=== PATIENT | female | born 1955 | race Caucasian/White ===

== ENCOUNTER 2018-07-26 15:00 | Emergency (ER) | payer BC ==
--- NOTE | 2018-07-26 15:40 | EDPHY ---
H & P Stated Complaint: States rt hand weak grasp since yesterday am,denies other s/s' s Time Seen by Provider: 07/26/18 15:16 HPI/ROS: Yesterday at 7:00 a.m., approximately 32 hr prior to presentation patient noticed right hand weakness citing difficulties with daily activities using her dominant right hand due to this weakness including difficulty a brushing her hair or any fine motor skills with the right hand. She notes no other associated symptoms but has never had this symptom before. She drove herself here for evaluation. She took 2 adult aspirins this morning. She can't explain why she did come in sooner. She notes no exacerbating factors for symptoms and notes no other neuro symptoms or deficits. ROS: Constitutional: No fevers. No generalized weakness. HEENT: No URI symptoms or sinusitis symptoms. Neuro: No headache. She denies any numbness or tingling. No other focal weakness. No confusion. Pulmonary: No cough shortness of breath Cardiovascular: No chest pain or heart palpitations. No lower extremity swelling or calf pain. No lightheadedness. GI: No abdominal pain, nausea or vomiting. No diarrhea. Integumentary: No skin rash. Endocrine: No complaints Toxicology: No ingestions 10 point review of symptoms is performed and otherwise negative with exception of pertinent positives and negatives listed in HPI and ROS Source: Patient Exam Limitations: No limitations - Medical/Surgical History Hx Asthma: No Hx Chronic Respiratory Disease: No Hx Diabetes: No Hx Cardiac Disease: No Hx Renal Disease: No Hx Cirrhosis: No Hx Alcoholism: Yes Hx HIV/AIDS: No Hx Splenectomy or Spleen Trauma: No Other PMH: ORTHO SURGERIES; PANCREAS. 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 Gerd. Cervical fusion -Dr. Arenas - [facility] - Family History Significant Family History: No pertinent family hx - Social History Smoking Status: Heavy smoker (Smokes half pack a day on average) Alcohol Use: Rarely Drug Use: Marijuana (Most days) Additional Social History: No IV drug use - Physical Exam Exam: General Appearance: Alert, no distress. Eyes: Pupils equal and round no pallor or injection. ENT, Mouth: Mucous membranes moist. No sinus tenderness Neck is supple. No midline tenderness. She retains full range of motion without significant pain Respiratory: There are no retractions, lungs are clear to auscultation. Cardiovascular: Regular rate and rhythm. Gastrointestinal: Abdomen is soft and nontender, no masses, bowel sounds normal. Neurological: GCS 15. Cranial nerves 2-12 are grossly intact. The patient has notable weakness in right hand intrinsic muscles including finger AB duction, finger flexion more than wrist extension and flexion. She maintains good strength and arm flexion extension. DTRs remain intact-biceps, triceps brachioradialis 2+ symmetric bilaterally. She also has 2+ patellar DTRs bilaterally. Appreciate no significant pronator drift. She maintains normal light touch sensory exam in bilateral upper and lower extremities Skin: Warm and dry, no rashes. Musculoskeletal: Back is nontender. Extremities atraumatic and normal. She has no right upper extremity tenderness, erythema ecchymosis or other abnormalities Extremities are symmetrical, full range of motion with exception of right hand this described in neuro exam. Psychiatric: Mood and affect are normal DIFFERENTIAL DIAGNOSIS: After history and physical exam differential diagnosis was considered for stroke, cervical radiculopathy, tumor with nerve compression , conversion disorder, peripheral neuropathy. Constitutional: Initial Vital Signs Temperature (C) 36.7 C 07/26/18 15:12 Heart Rate 99 07/26/18 15:12 Respiratory Rate 16 07/26/18 15:12 Blood Pressure 137/107 H 07/26/18 15:12 O2 Sat (%) 93 07/26/18 15:12 O2 Delivery Mode Room Air Allergies/Adverse Reactions: Penicillins Allergy (Verified 07/26/18 15:11) Home Medications: Medication Instructions Recorded Albuterol Hfa Anes Only [Proair 2 puffs IH QID PRN #1 mdi 07/05/15 Hfa Anes Only] Methocarbamol [Robaxin 750 mg (*)] 750 - 1,500 mg PO QID PRN #30 tab 07/26/18 methylPREDNISolone [Medrol Dose 4 mg PO AD #1 ea 07/26/18 Gio] Medical Decision Making - Diagnostics Imaging Results: Imaging Impressions Head CT 07/26/18 15:26 Impression: Head CT within normal limits. Results called to Dr. Daniel Lieberman at 3:42 PM. General information for patients regarding this examination can be found at [email or web address]. If you have questions or comments about this report, please contact me at (hospital) or [phone] (cell). Cervical Spine X-Ray 07/26/18 15:45 Impression: 1. Disk replacement material with anterior obliquely angled screws at C4-C5, C5- C6, and C6-C7 with good alignment. 2. Minimal disk space narrowing with associated anterior marginal osteophyte at C3-C4 and at C7-T1. 3. Bilateral neuroforaminal stenosis at C5-C6 and at C6-C7 secondary to posterior lateral marginal osteophytes. Cervical spine x-rays: Hardware intact, mild degenerative changes. No acute abnormalities by my interpretation Imaging: Discussed imaging studies w/ manager call Radiologist (CT head-normal), I viewed and interpreted images myself (Plain cervical films) ED Course/Re-evaluation: The patient declined an IV or phlebotomy for blood work. She does except imaging workup. I discussed the patient's normal head CT with her and plan for plain films of her neck. A consult to Dr. Tylor Burgos-neurologist regarding this case. He agrees with plan for steroids and follow up as an outpatient Discussion: Patient with isolated weakness to right hand intrinsics corresponding to CA to T1 nerve distribution without any VP SCIENTIFIC symptoms, evidence of carpal tunnel rather peripheral neuropathies from constriction with history of prior cervical fusion, some degenerative changes and osteophytes on cervical spine plain films. Given this cluster findings that it is most likely the patient has a cervical radiculopathy. To bit unusual that she does not have associated cervical pain at this time. I counseled the patient regarding this clinical impression and treatment plan of Medrol Dosepak, all muscle relaxants p.r.n. And close follow-up with Dr. Worley, neurosurgeon or her resource conservation specialist for any ongoing symptoms despite treatment plan. As I detailed the need for her to proceed to the main emergency department at the hospital or Hospital for choice for any worsening of symptoms despite treatment plan. I also encouraged her to diminish her aspirin dose from current 2 325 mg tabs to 1 baby aspirin a day while she is on the steroids. Finally, I counseled her to quit smoking. Answered all the patient's questions prior to discharge home. Departure - Departure Disposition: Home, Routine, Self-Care Clinical Impression: Hand weakness Condition: Good Instructions: Methylprednisolone (By mouth), How to Stop Smoking (ED), Cervical Radiculopathy (ED) Additional Instructions: Diagnosis: Hand weakness It is likely that she have cervical radiculopathy causing hand weakness- impingement of a nerve in your neck. Plan: Medrol steroid medications as prescribed Decrease your aspirin intake to 1 baby aspirin a day while your on steroids Quit smoking. Follow up with your neck surgeon or with Dr. Hutchison-neurosurgeon listed below. Go to the main emergency department at [facility] or other hospital associated emergency department if you are having worsening symptoms or onset of additional symptoms over the next 24-48 hours despite treatment plan. Referrals: Yomi Hutchison MD [Medical Doctor] - As per Instructions NONE *PRIMARY CARE P,. [Primary Care Provider] - As per Instructions José Miguel Khalil MD [[facility] Primary Care Provider] - As per Instructions Prescriptions: Methocarbamol [Robaxin 750 mg (*)] 750 - 1,500 mg PO QID PRN #30 tab PRN Reason: Muscle Spasms methylPREDNISolone [Medrol Dose Gio] 4 mg PO AD #1 ea
[2018-07-26 16:44] VITALS: BP 139/91
== END 2018-07-26 16:43 | disposition home or self-care (01) ==
LOC: CED 15:00
DX: M62.81 Muscle weakness (generalized) (principal); Z79.82 Long term (current) use of aspirin; F17.200 Nicotine dependence, unspecified, uncomplicated
CPT/HCPCS: 70450-PO; 72050-PO

== ENCOUNTER 2018-10-01 11:57 | Emergency (ER) | payer BC ==
[2018-10-01 12:31] VITALS: BP 127/91
[2018-10-01] MEDS ORDERED: NS 1,000 ML IV ONE (12:55)
--- NOTE | 2018-10-01 12:58 | EDPHY ---
H & P Stated Complaint: Pt. with rt flank pain x3-4 days,denies injury as well as urinary s/s's Time Seen by Provider: 10/01/18 12:39 HPI/ROS: CHIEF COMPLAINT: Right mid back pain HISTORY OF PRESENT ILLNESS: The patient is a 63-year-old female who comes to the emergency department complaining of 3 days right posterior ribcage area pain. She denies lower or CVA pain. No dysuria or frequency. No fevers. No worsening with deep inspiration. No shortness of breath. No chest pain. She has not felt nauseous. She has not vomited. No diarrhea. No thoracic surgeries. No radiation to shoulder. Severity: Moderate Modifying factors: Constant and unrelenting REVIEW OF SYSTEMS: Constitutional: denies: chills, fever, recent illness, recent injury EENTM: denies: blurred vision, double vision, nose congestion Respiratory: denies: cough, shortness of breath Cardiac: See HPI denies: chest pain, irregular heart rate, lightheadedness, palpitations Gastrointestinal/Abdominal: denies: abdominal pain, diarrhea, nausea, vomiting, blood streaked stools Genitourinary: denies: dysuria, frequency, hematuria, pain Musculoskeletal: See HPI denies: joint pain, muscle pain Skin: denies: lesions, rash, jaundice, bruising Neurological: denies: headache, numbness, paresthesia, tingling, dizziness, weakness Hematologic/Lymphatic: denies: blood clots, easy bleeding, easy bruising Immunologic/allergic: denies: HIV/AIDS, transplant 10 systems reviewed and negative except as noted EXAM: GENERAL: Walking around the room, trying on gloves, Well-appearing, well- nourished and in no acute distress. HEAD: Atraumatic, normocephalic. EYES: Pupils equal round and reactive to light, extraocular movements intact, sclera anicteric, conjunctiva are normal. ENT: TMs normal, nares patent, oropharynx clear without exudates. Moist mucous membranes. NECK: Normal range of motion, supple without lymphadenopathy or JVD. LUNGS: Breath sounds clear to auscultation bilaterally and equal. No wheezes rales or rhonchi. HEART: Regular rate and rhythm without murmurs, rubs or gallops. ABDOMEN: Soft, nontender, normoactive bowel sounds. No guarding, no rebound. No masses appreciated. Negative Foster's BACK: Pain to right posterior rib area. No tenderness. No pain with movement. No CVA tenderness, no spinal tenderness, step-offs or deformities EXTREMITIES: Normal range of motion, no pitting or edema. No clubbing or cyanosis. NEUROLOGICAL: Cranial nerves II through XII grossly intact. Normal speech, normal gait. 5/5 strength, normal movement in all extremities, normal sensation , normal reflexes PSYCH: Normal mood, normal affect. SKIN: Warm, dry, normal turgor, no visible rashes or lesions. Source: Patient Exam Limitations: No limitations - Personal History Current Tetanus Diphtheria and Acellular Pertussis (TDAP): Unsure - Medical/Surgical History Hx Asthma: No Hx Chronic Respiratory Disease: No Hx Diabetes: No Hx Cardiac Disease: No Hx Renal Disease: No Hx Cirrhosis: No Hx Alcoholism: Yes Hx HIV/AIDS: No Hx Splenectomy or Spleen Trauma: No Other PMH: ORTHO SURGERIES; PANCREAS. 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 Gerd. Cervical fusion -Dr. Arenas - [facility] - Social History Smoking Status: Heavy smoker Constitutional: Initial Vital Signs Temperature (C) 37.0 C 10/01/18 12:28 Heart Rate 94 10/01/18 12:28 Respiratory Rate 16 10/01/18 12:28 Blood Pressure 127/91 H 10/01/18 12:28 O2 Sat (%) 95 10/01/18 12:28 O2 Delivery Mode Room Air Allergies/Adverse Reactions: Penicillins Allergy (Verified 10/01/18 12:27) Home Medications: Medication Instructions Recorded NK [No Known Home Meds] 10/01/18 Medical Decision Making ED Course/Re-evaluation: 1:02 p.m. I went back into the room to ask the patient about pancreatitis. Her charts that she has had pancreatitis before. She states that that was many years ago when she has to drink and this does not feel similar. We began discussing the workup but she asked how long would take. I said at least in our maybe an hour and half. She says that she cannot wait and needs to go to work. She states that her symptoms are really not that bad right now and have not changed recently. She understands the risks involved in leaving. She understands that I cannot make a definitive diagnosis. Her urinalysis here did not show any leuk esterase or blood. She declines blood work and ultrasound that were previously ordered. I encouraged her to return immediately for symptoms worsen and to return tomorrow if she has time or follow-up with her gastrologist Dr. Navarro. Differential Diagnosis: Partial list of the Differential diagnosis considered include but were not limited to; biliary disease, PE, rib pain, musculoskeletal pain, kidney stone, constipation, urinary tract infection and although unlikely based on the history and physical exam, I also considered cyst, obstruction, ischemia. - Data Points Laboratory Results: 10/01/18 12:38 Urine Color HUMAIRA Urine Appearance HAZY Urine pH 5.0 (5.0-7.5) Ur Specific [place] 1.028 (1.002-1.030) Urine Protein NEGATIVE (NEGATIVE) Urine Ketones TRACE H (NEGATIVE) Urine Blood NEGATIVE (NEGATIVE) Urine Nitrate NEGATIVE (NEGATIVE) Urine Bilirubin NEGATIVE (NEGATIVE) Urine Urobilinogen 4.0 EU H EU (0.2-1.0) Ur Leukocyte Esterase NEGATIVE (NEGATIVE) Urine RBC NONE SEEN /hpf /hpf (0-3) Urine WBC 1-3 /hpf /hpf (0-3) Ur Epithelial Cells TRACE /lpf /lpf (NONE-1+) Urine Mucus 3+ /lpf H /lpf (NONE-1+) Urine Glucose NEGATIVE (NEGATIVE) Medications Given: Discontinued Medications Sodium Chloride (Ns) 1,000 mls @ 0 mls/hr IV EDNOW ONE; Wide Open PRN Reason: Protocol Stop: 10/01/18 12:56 Last Admin: 10/01/18 13:16 Dose: Not Given Point of Care Test Results: Urine Dip Collection Date 10/01/18 Collection Time 12:38 Specific [place] (1.002-1.030) 1.025 PH (5.0-7.5) 5.5 Leukocytes (Negative) Negative Nitrites (Negative) Negative Protein (Negative) Trace Glucose (Negative) 1+ Ketones (Negative) 1+ Urobilnogen (0.2-1.0 EU) 1.0 Bilirubin (Negative) Test Not Performed Blood (Negative) Negative Departure - Departure Disposition: Home, Routine, Self-Care Clinical Impression: Right upper quadrant pain Condition: Fair Instructions: Acute Abdominal Pain (ED), Flank Pain (ED) Referrals: NONE *PRIMARY CARE P,. [Primary Care Provider] - As per Instructions Lino Mattson [Medical Doctor] - 2-3 days, if not improved
== END 2018-10-01 13:06 | disposition home or self-care (01) ==
LOC: CED 11:57
DX: R10.11 Right upper quadrant pain (principal); E86.9 Volume depletion, unspecified